=== PATIENT | male | born 1955 | race Caucasian/White ===

== ENCOUNTER → 2020-05-27 | Outpatient (CLI) | payer OTHER | LOC: RAD 14:49 | DX: J44.9 Chronic obstructive pulmonary disease, unspecified (principal) ==

== ENCOUNTER → 2020-05-30 | Outpatient (CLI) | payer OTHER ==
[2020-05-30 07:26] LABS: HEMATOCRIT 40.4 % (42.0-52.0); HEMOGLOBIN 13.7 g/dL (13.5-18.0); MEAN PLATELET VOLUME 8.4 fl (7.4-10.4); RED BLOOD COUNT 4.38 M/mm3 (4.20-5.60); RED CELL DISTRIBUTION WIDTH 14.9 % (11.5-14.5); WHITE BLOOD COUNT 16.1 K/mm3 (4.8-10.8)
[2020-05-30 07:48] LABS: ALBUMIN 3.6 g/dL (3.4-4.8)
[2020-05-30 07:49] LABS: CALCIUM 9.1 mg/dL (8.3-10.5)
[2020-05-30 07:51] LABS: TOTAL PROTEIN 6.9 g/dL (6.2-8.1)
[2020-05-30 07:52] LABS: TOTAL BILIRUBIN 0.3 mg/dL (0.2-1.2)
== END ==
LOC: LAB 06:58
PROVIDERS: Family Medicine
DX: J44.9 Chronic obstructive pulmonary disease, unspecified (principal); M19.90 Unspecified osteoarthritis, unspecified site

== ENCOUNTER → 2020-06-03 | Outpatient (CLI) | payer OTHER ==
[2020-06-03 14:39] LABS: BASO # 0.2 (0.02-0.10); EOS # 0.1 (0.04-0.40); EOS % 0.4 % (0.0-4.0); HEMATOCRIT 38.9 % (42.0-52.0); HEMOGLOBIN 13.5 g/dL (13.5-18.0); LYMPH# 2.7 (1.50-4.00); MEAN CELL VOLUME 91 fl (78-100); MEAN CORPUSCULAR HEMOGLOBIN 32 pg (27-31); MEAN CORPUSCULAR HGB CONC 35 g/dL (33-37); MEAN PLATELET VOLUME 8.2 fl (7.4-10.4); RED BLOOD COUNT 4.27 M/mm3 (4.20-5.60); RED CELL DISTRIBUTION WIDTH 14.5 % (11.5-14.5)
[2020-06-03 14:53] LABS: MONO # 2.2 (0.20-0.80); NEU # 16.6 (1.40-6.50); PLATELET COUNT 1825 K/mm3 (130-400); WHITE BLOOD COUNT 21.9 K/mm3 (4.8-10.8)
== END ==
LOC: LAB 14:24
PROVIDERS: Family Medicine
DX: Z00.00 Encounter for general adult medical examination without abnormal findings (principal); Z12.5 Encounter for screening for malignant neoplasm of prostate; J44.9 Chronic obstructive pulmonary disease, unspecified; F17.200 Nicotine dependence, unspecified, uncomplicated; M19.90 Unspecified osteoarthritis, unspecified site; R20.0 Anesthesia of skin

== ENCOUNTER → 2020-07-26 | Outpatient (CLI) | payer OTHER | LOC: RAD 08:19 | DX: S12.110G Anterior displaced Type II dens fracture, subsequent encounter for fracture with delayed healing (principal); I63.9 Cerebral infarction, unspecified; J43.9 Emphysema, unspecified | CPT/HCPCS: Q9967 ==

== ENCOUNTER → 2020-08-17 | Outpatient (CLI) | payer OTHER ==
[2020-08-17 13:04] LABS: EOS # 0.2 (0.04-0.40); EOS % 2.1 % (0.0-4.0); HEMATOCRIT 34.5 % (42.0-52.0); LYMPH# 2.7 (1.50-4.00); MEAN CELL VOLUME 99 fl (78-100); MEAN CORPUSCULAR HEMOGLOBIN 34 pg (27-31); MEAN CORPUSCULAR HGB CONC 35 g/dL (33-37); MEAN PLATELET VOLUME 7.9 fl (7.4-10.4); MONO # 1.1 (0.20-0.80); NEU # 5.5 (1.40-6.50); PLATELET COUNT 300 K/mm3 (130-400); RED CELL DISTRIBUTION WIDTH 18.7 % (11.5-14.5); WHITE BLOOD COUNT 9.6 K/mm3 (4.8-10.8)
== END ==
LOC: LAB 12:52
PROVIDERS: Internal Medicine Hematology & Oncology
DX: D47.3 Essential (hemorrhagic) thrombocythemia (principal)

== ENCOUNTER → 2020-08-31 | Outpatient (CLI) | payer OTHER ==
[2020-08-31 17:45] LABS: HEMATOCRIT 34.2 % (42.0-52.0); HEMOGLOBIN 11.9 g/dL (13.5-18.0); MEAN CELL VOLUME 101 fl (78-100); MEAN CORPUSCULAR HEMOGLOBIN 35 pg (27-31); MEAN CORPUSCULAR HGB CONC 35 g/dL (33-37); RED BLOOD COUNT 3.38 M/mm3 (4.20-5.60); RED CELL DISTRIBUTION WIDTH 20.4 % (11.5-14.5); WHITE BLOOD COUNT 7.5 K/mm3 (4.8-10.8)
[2020-08-31 17:46] LABS: PLATELET COUNT 879 K/mm3 (130-400)
[2020-08-31 18:07] LABS: BAND 2 % (0-10); LYMPHOCYTE 37 % (20-51); MONOCYTE 12 % (3-10); NEUTROPHILS 47 % (42-75)
== END ==
LOC: LAB 17:34
PROVIDERS: Internal Medicine Hematology & Oncology
DX: D47.3 Essential (hemorrhagic) thrombocythemia (principal)

== ENCOUNTER → 2020-09-16 | Outpatient (CLI) | payer OTHER | LOC: LAB 07:33 | DX: E78.5 Hyperlipidemia, unspecified (principal) ==

== ENCOUNTER → 2020-10-21 | Outpatient (CLI) | payer OTHER ==
[2020-10-21 11:00] LABS: EOS # 0.1 (0.04-0.40); HEMATOCRIT 35.2 % (42.0-52.0); HEMOGLOBIN 12.2 g/dL (13.5-18.0); LYMPH# 1.8 (1.50-4.00); MEAN CELL VOLUME 109 fl (78-100); MEAN CORPUSCULAR HGB CONC 35 g/dL (33-37); MEAN PLATELET VOLUME 8.4 fl (7.4-10.4); MONO # 0.4 (0.20-0.80); NEU # 4.6 (1.40-6.50); PLATELET COUNT 192 K/mm3 (130-400); RED BLOOD COUNT 3.24 M/mm3 (4.20-5.60); RED CELL DISTRIBUTION WIDTH 15.9 % (11.5-14.5); WHITE BLOOD COUNT 7.1 K/mm3 (4.8-10.8)
[2020-10-21 11:01] LABS: ALBUMIN 3.9 g/dL (3.4-4.8)
[2020-10-21 11:02] LABS: POTASSIUM 3.9 mmol/L (3.5-5.1)
[2020-10-21 11:03] LABS: MEAN CORPUSCULAR HEMOGLOBIN 38 pg (27-31)
[2020-10-21 11:04] LABS: TOTAL PROTEIN 6.5 g/dL (6.2-8.1)
[2020-10-21 11:06] LABS: TOTAL BILIRUBIN 0.5 mg/dL (0.2-1.2)
== END ==
LOC: LAB 10:41
PROVIDERS: Internal Medicine Hematology & Oncology
DX: D50.0 Iron deficiency anemia secondary to blood loss (chronic) (principal); D47.3 Essential (hemorrhagic) thrombocythemia

== ENCOUNTER → 2020-12-09 | Outpatient (CLI) | payer OTHER ==
[2020-12-09 16:07] LABS: HEMATOCRIT 30.9 % (42.0-52.0); HEMOGLOBIN 10.8 g/dL (13.5-18.0); MEAN CELL VOLUME 116 fl (78-100); MEAN CORPUSCULAR HEMOGLOBIN 40 pg (27-31); MEAN CORPUSCULAR HGB CONC 35 g/dL (33-37); MEAN PLATELET VOLUME 8.6 fl (7.4-10.4); PLATELET COUNT 171 K/mm3 (130-400); RED BLOOD COUNT 2.67 M/mm3 (4.20-5.60); RED CELL DISTRIBUTION WIDTH 15.2 % (11.5-14.5); WHITE BLOOD COUNT 6.2 K/mm3 (4.8-10.8)
[2020-12-09 16:18] LABS: ALBUMIN 3.9 g/dL (3.4-4.8); POTASSIUM 3.9 mmol/L (3.5-5.1)
[2020-12-09 16:19] LABS: CALCIUM 8.9 mg/dL (8.3-10.5)
[2020-12-09 16:20] LABS: TOTAL PROTEIN 6.5 g/dL (6.2-8.1)
[2020-12-09 16:22] LABS: TOTAL BILIRUBIN 0.4 mg/dL (0.2-1.2)
[2020-12-09 17:03] LABS: LYMPHOCYTE 38 % (20-51); NEUTROPHILS 48 % (42-75)
[2020-12-09 17:04] LABS: MONOCYTE 14 % (3-10)
[2020-12-12 11:28] LABS: FOLATE (FOLIC ACID) 13.6 ng/mL (7.0-31.4)
== END ==
LOC: LAB 15:52
PROVIDERS: Family Medicine
DX: D50.0 Iron deficiency anemia secondary to blood loss (chronic) (principal); D47.3 Essential (hemorrhagic) thrombocythemia

== ENCOUNTER → 2021-03-24 | Outpatient (CLI) | payer OTHER ==
[2021-03-24 12:03] LABS: BASO # 0.02 (0.02-0.10); EOS # 0.03 (0.04-0.40); EOS % 0.5 % (0.0-4.0); HEMOGLOBIN 10.1 g/dL (13.5-18.0); LYMPH# 2.31 (1.50-4.00); MEAN CELL VOLUME 127 fl (78-100); MEAN CORPUSCULAR HEMOGLOBIN 44 pg (27-31); MEAN CORPUSCULAR HGB CONC 35 g/dL (33-37); MEAN PLATELET VOLUME 10.1 fl (7.4-10.4); MONO # 0.59 (0.20-0.80); NEU # 3.11 (1.40-6.50); PLATELET COUNT 86 K/mm3 (130-400); RED CELL DISTRIBUTION WIDTH 14.2 % (11.5-14.5); WHITE BLOOD COUNT 6.1 K/mm3 (4.8-10.8)
[2021-03-24 12:05] LABS: RED BLOOD COUNT 2.28 M/mm3 (4.20-5.60)
== END ==
LOC: LAB 11:44
PROVIDERS: Internal Medicine Hematology & Oncology
DX: D47.3 Essential (hemorrhagic) thrombocythemia (principal)

== ENCOUNTER → 2021-06-30 | Outpatient (CLI) | payer OTHER | LOC: RAD 07:27 | DX: Z00.00 Encounter for general adult medical examination without abnormal findings (principal); F17.200 Nicotine dependence, unspecified, uncomplicated; I71.4 Abdominal aortic aneurysm, without rupture ==

== ENCOUNTER → 2021-07-07 | Outpatient (CLI) | payer OTHER ==
[2021-07-07 15:08] LABS: BASO # 0.03 K/mm3 (0.02-0.10); EOS # 0.07 K/mm3 (0.04-0.40); EOS % 0.8 % (0.0-4.0); HEMATOCRIT 40.3 % (42.0-52.0); HEMOGLOBIN 13.8 g/dL (13.5-18.0); LYMPH# 2.18 K/mm3 (1.50-4.00); MEAN CELL VOLUME 113 fl (78-100); MEAN CORPUSCULAR HEMOGLOBIN 39 pg (27-31); MEAN CORPUSCULAR HGB CONC 34 g/dL (33-37); MEAN PLATELET VOLUME 8.3 fl (7.4-10.4); MONO # 0.99 K/mm3 (0.20-0.80); NEU # 5.16 K/mm3 (1.40-6.50); PLATELET COUNT 426 K/mm3 (130-400); RED BLOOD COUNT 3.56 M/mm3 (4.20-5.60); RED CELL DISTRIBUTION WIDTH 12.9 % (11.5-14.5); WHITE BLOOD COUNT 8.4 K/mm3 (4.8-10.8)
[2021-07-07 15:33] LABS: ALBUMIN 4.1 g/dL (3.4-4.8); POTASSIUM 3.8 mmol/L (3.5-5.1)
[2021-07-07 15:34] LABS: CALCIUM 9.5 mg/dL (8.3-10.5)
[2021-07-07 15:35] LABS: TOTAL PROTEIN 6.9 g/dL (6.2-8.1)
[2021-07-07 15:37] LABS: TOTAL BILIRUBIN 0.3 mg/dL (0.2-1.2)
== END ==
LOC: LAB 14:56
PROVIDERS: Internal Medicine Hematology & Oncology
DX: D50.0 Iron deficiency anemia secondary to blood loss (chronic) (principal)

== ENCOUNTER → 2021-08-23 | Outpatient (CLI) | payer OTHER ==
[2021-08-23 10:00] LABS: BASO # 0.03 K/mm3 (0.02-0.10); EOS # 0.05 K/mm3 (0.04-0.40); EOS % 0.8 % (0.0-4.0); HEMATOCRIT 43.2 % (42.0-52.0); HEMOGLOBIN 14.8 g/dL (13.5-18.0); LYMPH# 1.62 K/mm3 (1.50-4.00); MEAN CELL VOLUME 105 fl (78-100); MEAN CORPUSCULAR HEMOGLOBIN 36 pg (27-31); MEAN CORPUSCULAR HGB CONC 34 g/dL (33-37); MEAN PLATELET VOLUME 8.4 fl (7.4-10.4); MONO # 1.05 K/mm3 (0.20-0.80); NEU # 3.51 K/mm3 (1.40-6.50); PLATELET COUNT 339 K/mm3 (130-400); RED CELL DISTRIBUTION WIDTH 14.1 % (11.5-14.5); WHITE BLOOD COUNT 6.3 K/mm3 (4.8-10.8)
[2021-08-23 10:10] LABS: POTASSIUM 4.5 mmol/L (3.5-5.1)
[2021-08-23 10:11] LABS: CALCIUM 9.8 mg/dL (8.3-10.5)
[2021-08-23 11:00] LABS: ERYTHROCYTE SEDIMENTATION RATE 8 mm/hr (0-20)
== END ==
LOC: LAB 09:49
PROVIDERS: Family Medicine
DX: R22.9 Localized swelling, mass and lump, unspecified (principal)

== ENCOUNTER → 2021-09-07 | Outpatient (CLI) | payer OTHER | LOC: RAD 09-05 08:00 | DX: Z00.00 Encounter for general adult medical examination without abnormal findings (principal); I71.4 Abdominal aortic aneurysm, without rupture; F17.200 Nicotine dependence, unspecified, uncomplicated; R89.9 Unspecified abnormal finding in specimens from other organs, systems and tissues; H74.91 Unspecified disorder of right middle ear and mastoid | CPT/HCPCS: Q9967 ==

== ENCOUNTER → 2021-09-07 | Day surgery (SDC) | payer OTHER ==
[2021-09-07 09:32] LABS: BASO # 0.03 K/mm3 (0.02-0.10); EOS # 0.02 K/mm3 (0.04-0.40); EOS % 0.3 % (0.0-4.0); HEMATOCRIT 44.9 % (42.0-52.0); HEMOGLOBIN 15.4 g/dL (13.5-18.0); LYMPH# 1.64 K/mm3 (1.50-4.00); MEAN CELL VOLUME 105 fl (78-100); MEAN CORPUSCULAR HEMOGLOBIN 36 pg (27-31); MEAN CORPUSCULAR HGB CONC 34 g/dL (33-37); MEAN PLATELET VOLUME 9.5 fl (7.4-10.4); MONO # 0.84 K/mm3 (0.20-0.80); NEU # 4.95 K/mm3 (1.40-6.50); PLATELET COUNT 403 K/mm3 (130-400); RED BLOOD COUNT 4.29 M/mm3 (4.20-5.60); RED CELL DISTRIBUTION WIDTH 14.8 % (11.5-14.5); WHITE BLOOD COUNT 7.5 K/mm3 (4.8-10.8)
[2021-09-07 10:29] LABS: ERYTHROCYTE SEDIMENTATION RATE 1 mm/hr (0-20)
[2021-09-07 11:25] LABS: ALBUMIN 4.3 g/dL (3.4-4.8); POTASSIUM 4.8 mmol/L (3.5-5.1)
[2021-09-07 11:27] LABS: CALCIUM 9.9 mg/dL (8.3-10.5)
[2021-09-07 11:28] LABS: TOTAL PROTEIN 7.2 g/dL (6.2-8.1)
[2021-09-07 11:30] LABS: TOTAL BILIRUBIN 0.6 mg/dL (0.2-1.2)
[2021-09-07 23:23] LABS: FOLATE (FOLIC ACID) 17.4 ng/mL (2.0-20.0)
== END | disposition home or self-care (01) ==
LOC: MSO 07:33
PROVIDERS: Internal Medicine Gastroenterology
DX: D12.5 Benign neoplasm of sigmoid colon (principal); D12.8 Benign neoplasm of rectum; J44.9 Chronic obstructive pulmonary disease, unspecified; F17.210 Nicotine dependence, cigarettes, uncomplicated; D47.3 Essential (hemorrhagic) thrombocythemia; I48.0 Paroxysmal atrial fibrillation; I69.328 Other speech and language deficits following cerebral infarction; I69.351 Hemiplegia and hemiparesis following cerebral infarction affecting right dominant side; Z79.01 Long term (current) use of anticoagulants; Z79.899 Other long term (current) drug therapy
CPT/HCPCS: 00811; J2704; J7120

== ENCOUNTER → 2021-11-10 | Outpatient (CLI) | payer OTHER ==
[2021-11-10 11:32] LABS: ALBUMIN 4.1 g/dL (3.4-4.8); BASO # 0.02 K/mm3 (0.02-0.10); EOS # 0.12 K/mm3 (0.04-0.40); EOS % 1.3 % (0.0-4.0); HEMOGLOBIN 14.5 g/dL (13.5-18.0); LYMPH# 1.97 K/mm3 (1.50-4.00); MEAN CELL VOLUME 105 fl (78-100); MEAN CORPUSCULAR HEMOGLOBIN 36 pg (27-31); MEAN CORPUSCULAR HGB CONC 35 g/dL (33-37); MEAN PLATELET VOLUME 8.9 fl (7.4-10.4); MONO # 0.93 K/mm3 (0.20-0.80); NEU # 5.85 K/mm3 (1.40-6.50); PLATELET COUNT 682 K/mm3 (130-400); POTASSIUM 4.1 mmol/L (3.5-5.1); RED BLOOD COUNT 4.01 M/mm3 (4.20-5.60); RED CELL DISTRIBUTION WIDTH 14.5 % (11.5-14.5); WHITE BLOOD COUNT 8.9 K/mm3 (4.8-10.8)
[2021-11-10 11:33] LABS: CALCIUM 10.4 mg/dL (8.3-10.5)
[2021-11-10 11:34] LABS: TOTAL PROTEIN 6.9 g/dL (6.2-8.1)
[2021-11-10 11:36] LABS: TOTAL BILIRUBIN 0.5 mg/dL (0.2-1.2)
[2021-11-11 02:07] LABS: FOLATE (FOLIC ACID) >20.0 ng/mL (2.0-20.0)
== END ==
LOC: LAB 09:06
PROVIDERS: Internal Medicine Hematology & Oncology
DX: D50.0 Iron deficiency anemia secondary to blood loss (chronic) (principal); D47.3 Essential (hemorrhagic) thrombocythemia; H74.91 Unspecified disorder of right middle ear and mastoid; R19.5 Other fecal abnormalities; R89.9 Unspecified abnormal finding in specimens from other organs, systems and tissues

== ENCOUNTER → 2022-02-22 | Outpatient (CLI) | payer OTHER ==
[2022-02-22 18:09] LABS: BASO # 0.02 K/mm3 (0.02-0.10); EOS # 0.03 K/mm3 (0.04-0.40); EOS % 0.6 % (0.0-4.0); HEMATOCRIT 34.5 % (42.0-52.0); LYMPH# 2.03 K/mm3 (1.50-4.00); MEAN CELL VOLUME 112 fl (78-100); MEAN CORPUSCULAR HEMOGLOBIN 39 pg (27-31); MEAN CORPUSCULAR HGB CONC 35 g/dL (33-37); MEAN PLATELET VOLUME 8.2 fl (7.4-10.4); MONO # 0.88 K/mm3 (0.20-0.80); NEU # 2.31 K/mm3 (1.40-6.50); PLATELET COUNT 403 K/mm3 (130-400); RED BLOOD COUNT 3.07 M/mm3 (4.20-5.60); RED CELL DISTRIBUTION WIDTH 19.9 % (11.5-14.5); WHITE BLOOD COUNT 5.3 K/mm3 (4.8-10.8)
[2022-02-22 18:18] LABS: CALCIUM 9.2 mg/dL (8.3-10.5)
[2022-02-22 18:19] LABS: TOTAL PROTEIN 6.4 g/dL (6.2-8.1)
[2022-02-22 18:21] LABS: TOTAL BILIRUBIN 0.5 mg/dL (0.2-1.2)
== END ==
LOC: LAB 17:59
DX: C07 Malignant neoplasm of parotid gland (principal)

== ENCOUNTER → 2022-10-05 | Outpatient (CLI) | payer OTHER | LOC: RAD 11:01 | DX: R94.31 Abnormal electrocardiogram [ECG] [EKG] (principal) ==

== ENCOUNTER → 2022-10-17 | Day surgery (SDC) | payer OTHER | LOC: MSO 01:55 | DX: H25.811 Combined forms of age-related cataract, right eye (principal) | CPT/HCPCS: 00142; J0171; J2250; V2632 ==

== ENCOUNTER → 2023-06-21 | Outpatient (CLI) | payer OTHER | LOC: LAB 09:32 | DX: Z00.00 Encounter for general adult medical examination without abnormal findings (principal); Z12.5 Encounter for screening for malignant neoplasm of prostate; Z23 Encounter for immunization; J43.1 Panlobular emphysema; I48.0 Paroxysmal atrial fibrillation; D47.3 Essential (hemorrhagic) thrombocythemia; I69.359 Hemiplegia and hemiparesis following cerebral infarction affecting unspecified side ==

== ENCOUNTER 2023-08-25 08:57 | Emergency (ER) | payer OTHER ==
[~2023-08-25] VITALS: Wt 47.7 kg
[2023-08-25] MEDS ORDERED: BREZTRI AEROS10.7 GM IH (09:39)
[2023-08-25] MEDS ORDERED: HYDROXYUREA500 M1 PO (09:41)
[2023-08-25] MEDS ORDERED: FOLIC ACID1 MG PO (09:41)
[2023-08-25] MEDS ORDERED: ELIQUIS2.5 MG PO (09:41)
[2023-08-25] MEDS ORDERED: CENTRUM ADULTS1 EACH PO (09:42)
[2023-08-25] MEDS ORDERED: ATORVASTATIN CA80 MG PO (09:43)
[2023-08-25] MEDS ORDERED: COMPAZINE10 M2 PO (09:43)
[2023-08-25] MEDS ORDERED: CALCIUM-MAG-ZI1 EACH PO (09:43)
[2023-08-25] MEDS ORDERED: FISH OIL 1,0001 EAC1 PO (09:43)
[2023-08-25] MEDS ORDERED: MS CONTIN15 MG PO (09:44)
[2023-08-25] MEDS ORDERED: ALBUTEROL SULFAT3 M3 IH (09:45)
[2023-08-25] MEDS ORDERED: DESYREL50 MG PO (09:45)
[2023-08-25] MEDS ORDERED: PERCOCET 325 MG1 TA2 PO (09:46)
[2023-08-25] MEDS ORDERED: LIBTAYO350 MG/7 M IV (09:48)
[2023-08-25 09:49] LABS: HEMOGLOBIN 12.6 g/dL (13.5-18.0); MEAN CELL VOLUME 98 fl (78-100); MEAN CORPUSCULAR HEMOGLOBIN 35 pg (27-31); MEAN CORPUSCULAR HGB CONC 36 g/dL (33-37); MEAN PLATELET VOLUME 8.4 fl (7.4-10.4); PLATELET COUNT 462 K/mm3 (130-400); RED BLOOD COUNT 3.58 M/mm3 (4.20-5.60); RED CELL DISTRIBUTION WIDTH 14.3 % (11.5-14.5); WHITE BLOOD COUNT 8.6 K/mm3 (4.8-10.8)
[2023-08-25 09:57] LABS: ALBUMIN 3.6 g/dL (3.4-4.8)
[2023-08-25 09:58] LABS: CALCIUM 8.8 mg/dL (8.3-10.5)
[2023-08-25 09:59] LABS: TOTAL PROTEIN 6.1 g/dL (6.2-8.1)
[2023-08-25 10:07] LABS: LYMPHOCYTE 7 % (20-51); MONOCYTE 8 % (3-10); NEUTROPHILS 83 % (42-75)
[2023-08-25 10:22] LABS: TOTAL BILIRUBIN 0.7 mg/dL (0.2-1.2)
[2023-08-25 11:05] VITALS: BP 130/69
== END 2023-08-25 13:51 ==
LOC: ED 08:57
PROVIDERS: Nurse Practitioner Family
DX: R19.7 Diarrhea, unspecified (principal); R53.1 Weakness
CPT/HCPCS: J2405; J7030

== ENCOUNTER → 2023-11-15 | Outpatient (CLI) | payer OTHER ==
[~2023-11-15] MED LIST: ALBUTEROL SULFAT3 M3 IH; ATORVASTATIN CA80 MG PO; BREZTRI AEROS10.7 GM IH; CALCIUM-MAG-ZI1 EACH PO; CENTRUM ADULTS1 EACH PO; COMPAZINE10 M2 PO; DESYREL50 MG PO; ELIQUIS2.5 MG PO; FISH OIL 1,0001 EAC1 PO; FOLIC ACID1 MG PO; HYDROXYUREA500 M1 PO; LIBTAYO350 MG/7 M IV; MS CONTIN15 MG PO; PERCOCET 325 MG1 TA2 PO
[2023-11-15 17:40] LABS: CALCIUM 9.5 mg/dL (8.3-10.5)
== END ==
LOC: LAB 17:12
PROVIDERS: Family Medicine
DX: I50.31 Acute diastolic (congestive) heart failure (principal)

== ENCOUNTER → 2023-12-05 | Outpatient (CLI) | payer OTHER ==
[2023-12-05 14:14] LABS: HEMATOCRIT 43.7 % (42.0-52.0); HEMOGLOBIN 14.6 g/dL (13.5-18.0); MEAN CELL VOLUME 106 fl (78-100); MEAN CORPUSCULAR HEMOGLOBIN 35 pg (27-31); MEAN CORPUSCULAR HGB CONC 33 g/dL (33-37); MEAN PLATELET VOLUME 8.4 fl (7.4-10.4); PLATELET COUNT 566 K/mm3 (130-400); RED BLOOD COUNT 4.12 M/mm3 (4.20-5.60); RED CELL DISTRIBUTION WIDTH 15.8 % (11.5-14.5); WHITE BLOOD COUNT 12.3 K/mm3 (4.8-10.8)
[2023-12-05 14:24] LABS: ALBUMIN 4.1 g/dL (3.4-4.8); SODIUM 135 mmol/L (136-145)
[2023-12-05 14:25] LABS: CALCIUM 9.9 mg/dL (8.3-10.5)
[2023-12-05 14:26] LABS: GLUCOSE 114 mg/dL (75-110); TOTAL PROTEIN 6.4 g/dL (6.2-8.1)
[2023-12-05 14:27] LABS: CARBON DIOXIDE 27 mmol/L (23-31)
[2023-12-05 14:28] LABS: TOTAL BILIRUBIN 0.3 mg/dL (0.2-1.2)
[2023-12-05 14:32] LABS: AST-SGOT 26 U/L (5-34)
[2023-12-05 14:33] LABS: ALT/SGPT 37 U/L (0-55)
[2023-12-05 14:52] LABS: TROPONIN-I < 0.030 ng/mL (0.00-0.033)
[2023-12-05 15:21] LABS: LYMPHOCYTE 2 % (20-51); MONOCYTE 4 % (3-10); NEUTROPHILS 94 % (42-75)
== END ==
LOC: RAD 13:50
PROVIDERS: Nurse Practitioner Family
DX: J44.9 Chronic obstructive pulmonary disease, unspecified (principal); S22.070A Wedge compression fracture of T9-T10 vertebra, initial encounter for closed fracture; X58.XXXA Exposure to other specified factors, initial encounter

== ENCOUNTER → 2024-04-25 | Outpatient (CLI) | payer OTHER | LOC: VAS 06:59 → RAD 06:59 | DX: Z01.818 Encounter for other preprocedural examination (principal); I48.0 Paroxysmal atrial fibrillation; Z86.73 Personal history of transient ischemic attack (TIA), and cerebral infarction without residual deficits ==

== ENCOUNTER 2024-08-28 09:51 | Emergency (ER) | payer OTHER ==
[~2024-08-28] VITALS: Wt 44.2 kg
[2024-08-28] MEDS ORDERED: POTASSIUM CHLO10 ME8 PO (10:14)
[2024-08-28] MEDS ORDERED: FLECAINIDE ACET50 MG PO (10:17)
[2024-08-28] MEDS ORDERED: HYDROCORTISONE10 M1 PO (10:18)
[2024-08-28] MEDS ORDERED: METOPROLOL SUCC25 M1 PO (10:20)
[2024-08-28] MEDS ORDERED: IPRATROPIUM BROM3 M1 IH (10:21)
[2024-08-28] MEDS ORDERED: ZOMETA (10:22)
[2024-08-28 10:38] LABS: BASO # 0.03 K/mm3 (0.02-0.10); EOS # 0.04 K/mm3 (0.04-0.40); EOS % 0.3 % (0.0-4.0); HEMATOCRIT 37.2 % (42.0-52.0); HEMOGLOBIN 13.2 g/dL (13.5-18.0); LYMPH# 0.88 K/mm3 (1.50-4.00); MEAN CELL VOLUME 122 fl (78-100); MEAN CORPUSCULAR HEMOGLOBIN 43 pg (27-31); MEAN CORPUSCULAR HGB CONC 36 g/dL (33-37); MEAN PLATELET VOLUME 10.2 fl (7.4-10.4); MONO # 1.46 K/mm3 (0.20-0.80); NEU # 12.04 K/mm3 (1.40-6.50); PLATELET COUNT 142 K/mm3 (130-400); RED BLOOD COUNT 3.04 M/mm3 (4.20-5.60); RED CELL DISTRIBUTION WIDTH 14.6 % (11.5-14.5); WHITE BLOOD COUNT 14.5 K/mm3 (4.8-10.8)
[2024-08-28 10:46] LABS: ALBUMIN 4.2 g/dL (3.4-4.8)
[2024-08-28 10:47] LABS: CALCIUM 10.1 mg/dL (8.3-10.5)
[2024-08-28 10:49] LABS: TOTAL PROTEIN 7.5 g/dL (6.2-8.1)
[2024-08-28] MEDS ORDERED: methylPREDNISolone Sod Succ 125 MG/2 ML VIAL IV ONE (11:15)
[2024-08-28] MEDS ORDERED: Dextrose 50% Water 25 GM/50 ML SYRINGE IV ONE (11:45)
[2024-08-28] MEDS ORDERED: NS 1,000 ML IV SCH (12:00)
[2024-08-28 14:15] VITALS: BP 100/63
== END 2024-08-28 14:15 | disposition short-term general hospital (02) ==
LOC: ED 09:51
PROVIDERS: Nurse Practitioner
DX: J44.1 Chronic obstructive pulmonary disease with (acute) exacerbation (principal); C18.9 Malignant neoplasm of colon, unspecified; C44.91 Basal cell carcinoma of skin, unspecified; F17.200 Nicotine dependence, unspecified, uncomplicated; Z86.73 Personal history of transient ischemic attack (TIA), and cerebral infarction without residual deficits; Z79.01 Long term (current) use of anticoagulants; Z79.899 Other long term (current) drug therapy
CPT/HCPCS: J1720; J1956; J2919; J7030

== ENCOUNTER → 2024-09-09 | Outpatient (CLI) | payer OTHER ==
[~2024-09-09] MED LIST changes: +FLECAINIDE ACET50 MG PO; +HYDROCORTISONE10 M1 PO; +IPRATROPIUM BROM3 M1 IH; +METOPROLOL SUCC25 M1 PO; +POTASSIUM CHLO10 ME8 PO; +ZOMETA
[2024-09-09 11:52] LABS: HEMATOCRIT 30.1 % (42.0-52.0); HEMOGLOBIN 10.2 g/dL (13.5-18.0); MEAN CELL VOLUME 119 fl (78-100); MEAN CORPUSCULAR HEMOGLOBIN 40 pg (27-31); MEAN CORPUSCULAR HGB CONC 34 g/dL (33-37); MEAN PLATELET VOLUME 9.5 fl (7.4-10.4); PLATELET COUNT 274 K/mm3 (130-400); RED BLOOD COUNT 2.54 M/mm3 (4.20-5.60); RED CELL DISTRIBUTION WIDTH 15.7 % (11.5-14.5); WHITE BLOOD COUNT 8.3 K/mm3 (4.8-10.8)
[2024-09-09 12:05] LABS: CALCIUM 9.2 mg/dL (8.3-10.5)
[2024-09-09 12:11] LABS: MAGNESIUM 1.78 mg/dL (1.60-2.60)
[2024-09-09 12:28] LABS: LYMPHOCYTE 4 % (20-51); MONOCYTE 5 % (3-10); NEUTROPHILS 91 % (42-75)
== END ==
LOC: LAB 11:42
PROVIDERS: Family Medicine
DX: D64.9 Anemia, unspecified (principal); E87.6 Hypokalemia; E83.42 Hypomagnesemia

== ENCOUNTER 2024-11-30 19:17 | Emergency (ER) | payer OTHER ==
[~2024-11-30] VITALS: Ht 162.6 cm; Wt 44.1 kg
[~2024-11-30 19:17] MED LIST changes: +DOXYCYCLINE HY100 M5 PO; +PREDNISONE10 MG PO
[2024-11-30] MEDS ORDERED: NS 1,000 ML IV SCH (20:00)
[2024-11-30 20:36] LABS: HEMATOCRIT 32.6 % (42.0-52.0); HEMOGLOBIN 10.8 g/dL (13.5-18.0); MEAN CELL VOLUME 97 fl (78-100); MEAN CORPUSCULAR HEMOGLOBIN 32 pg (27-31); MEAN CORPUSCULAR HGB CONC 33 g/dL (33-37); MEAN PLATELET VOLUME 9.3 fl (7.4-10.4); PLATELET COUNT 484 K/mm3 (130-400); RED BLOOD COUNT 3.37 M/mm3 (4.20-5.60); RED CELL DISTRIBUTION WIDTH 15.8 % (11.5-14.5)
[2024-11-30 20:39] LABS: ALBUMIN 3.2 g/dL (3.4-4.8)
[2024-11-30 20:41] LABS: CALCIUM 8.6 mg/dL (8.3-10.5)
[2024-11-30 20:42] LABS: TOTAL PROTEIN 6.3 g/dL (6.2-8.1)
[2024-11-30 20:44] LABS: TOTAL BILIRUBIN 0.4 mg/dL (0.2-1.2)
[2024-11-30 20:50] LABS: WHITE BLOOD COUNT 23.5 K/mm3 (4.8-10.8)
[2024-11-30 20:53] LABS: LYMPHOCYTE 1 % (20-51); MONOCYTE 2 % (3-10); NEUTROPHILS 97 % (42-75)
[2024-11-30] MEDS ORDERED: AMOXICILLIN AND1 TA2 PO (22:32)
[2024-11-30] MEDS ORDERED: Amoxicillin/Clavulanate K+ 875/125 MG TAB PO ONE (22:45)
[2024-11-30 22:50] VITALS: BP 99/63
[2024-11-30 23:31] LABS: PH-URINE 5.5 (5.0 - 8.0); URINE APPEARANCE CLEAR (CLEAR); URINE BILIRUBIN NEGATIVE (NEGATIVE); URINE BLOOD NEGATIVE (NEGATIVE); URINE COLOR YELLOW (YELLOW); URINE GLUCOSE NEGATIVE (NEGATIVE); URINE KETONE NEGATIVE (NEGATIVE); URINE LEUKOCYTE ESTERASE NEGATIVE (NEGATIVE); URINE NITRATE NEGATIVE (NEGATIVE); URINE PROTEIN(semi-quant) NEGATIVE (NEGATIVE)
== END 2024-11-30 22:50 | disposition home or self-care (01) ==
LOC: ED 19:17
PROVIDERS: Physician Assistant
DX: D72.829 Elevated white blood cell count, unspecified (principal); R50.9 Fever, unspecified; Z85.820 Personal history of malignant melanoma of skin; Z86.73 Personal history of transient ischemic attack (TIA), and cerebral infarction without residual deficits
CPT/HCPCS: J7030